=== PATIENT | male | born 1940 | race Caucasian/White ===

== ENCOUNTER 2019-03-12 10:42 | Emergency (ER) | payer MEDICARE ==
[~2019-03-12] VITALS: Ht 177.8 cm; Wt 99.8 kg
[~2019-03-12 10:42] MED LIST: ALBU2.5V8 IH; AMOX1TAB11 PO; ATOR20TA58 PO; BENZ-8 PO; CARV12.511 PO; IBUP-1060 PO; LOSA100T14 PO; PRIM50TA PO
[2019-03-12 11:20] VITALS: BP 172/91
[2019-03-12] MEDS ORDERED: CEPH-264 PO (11:41)
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
== END 2019-03-12 12:00 | disposition home or self-care (01) ==
LOC: ER 10:42
DX: M79.674 Pain in right toe(s) (principal); I48.91 Unspecified atrial fibrillation; J45.909 Unspecified asthma, uncomplicated; I11.0 Hypertensive heart disease with heart failure; I50.9 Heart failure, unspecified; J44.9 Chronic obstructive pulmonary disease, unspecified; E78.00 Pure hypercholesterolemia, unspecified
CPT/HCPCS: 99283

== ENCOUNTER 2020-05-23 16:22 | Observation (INO) | payer MEDICARE ==
[~2020-05-23] VITALS: Ht 177.8 cm; Wt 97.9 kg
[~2020-05-23 16:22] MED LIST changes: +ACET500T68 PO; +AMLO-186 PO; +ASPI-630 PO; +CEPH-264 PO; +GABA-585 PO; +HYDR-2761 PO; +IBUP-1027 PO
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
--- NOTE | 2020-05-23 17:42 | RAD ---
XR CHEST 1V History: Reason: SYNCOPE / Spl. Instructions: / History: Comparison: April 23, 2019 Findings: No consolidation or pleural effusion. Normal heart size. No pneumothorax. Impression: 1. No acute cardiopulmonary process. Electronically signed by: Gerry Roque DO (05/23/2020 5:40 PM) [facility]
--- NOTE | 2020-05-23 17:54 | RAD ---
EXAM: CT head and cervical spine without contrast INDICATION: Syncopal episode COMPARISON: CT head 04/21/2019 TECHNIQUE: Axial CT imaging through the head and cervical spine without intravenous contrast. Sagitta l and coronal reformats were obtained. One or more of the following individualized dose reduction techniques were utilized for this examinat ion: 1. Automated exposure control 2. Adjustment of the mA and/or kV according to patient size 3. Use of iterative reconstruction technique. FINDINGS: CT head: The ventricles and sulci are moderately enlarged, reflecting age-related volume loss. Moderate to sev ere confluent periventricular and deep white matter hypoattenuation is unchanged. Vo-white matter differentiation is maintained. There is no intracranial hemorrhage, acute infarct, or mass lesion. Ba yahir cisterns are clear. The calvarium is intact the visualized paranasal sinuses and mastoid air cell s are clear. Globes and orbits are intact. CT cervical spine: The bones are diffusely demineralized. There is no acute fracture. Alignment is normal. There is slig ht reversal of lordosis. Mild disc space narrowing is greatest at C5-C6 through C7-T1. There is sever e right facet arthrosis at C3-C4. Uncovertebral joint proliferation at multiple levels. There is cheryl re bilateral foraminal narrowing at C5-C6 and C6-C7, and severe right greater than left foraminal reji rowing at C3-C4. There is multilevel canal narrowing due to disc bulges. Prevertebral soft tissue is normal. There is a left common carotid artery stent. Mild paraseptal emph ysema in the lung apices. IMPRESSION: 1. No acute intracranial abnormality or acute osseous abnormality of the cervical spine. 2. Unchanged cerebral volume loss and white matter disease. 3. Degenerative disc disease. Electronically signed by: Josy Jeffrey MD (05/23/2020 5:51 PM) [id number]
[2020-05-23 18:07] LABS: BASO # 0.1 x10^3/uL (0.0-0.2); BASO % 1 % (0-3); EOS # 0.1 x10^3/uL (0.0-0.7); EOS % 1 % (0-3); HEMATOCRIT 41.9 % (39.0-53.0); HEMOGLOBIN 13.8 g/dL (13.0-17.5); LYMPH # 1.4 x10^3/uL (1.0-4.8); LYMPH % 19 % (24-48); MEAN CORPUSCULAR HEMOGLOBIN 30 pg (25-35); MEAN CORPUSCULAR HGB CONC 33 g/dL (31-37); MEAN CORPUSCULAR VOLUME 92 fL (79-100); MONO # 0.3 x10^3/uL (0.0-1.1); MONO % 4 % (0-9); NEUT # 5.5 x10^3/uL (1.8-7.7); NEUT % 75 % (31-73); PLATELET COUNT 155 x10^3/uL (140-400); RED BLOOD COUNT 4.55 x10^6/uL (4.30-5.70); RED CELL DISTRIBUTION WIDTH 14.1 % (11.5-14.5); WHITE BLOOD COUNT 7.3 x10^3/uL (4.0-11.0)
[2020-05-23 18:18] LABS: CALCIUM 8.9 mg/dL (8.5-10.1); CREATININE 2.1 mg/dL (0.7-1.3); GFR 30.5; POTASSIUM 4.2 mmol/L (3.5-5.1)
[2020-05-23 18:24] LABS: ALBUMIN 3.3 g/dL (3.4-5.0); ALBUMIN/GLOBULIN RATIO 0.9 (1.0-1.7); TOTAL BILIRUBIN 0.7 mg/dL (0.2-1.0); TOTAL PROTEIN 7.1 g/dL (6.4-8.2)
[2020-05-23 19:41] LABS: BASE EXCESS ABG -2 mmol/L (-3-3); HCO3 ABG 22 mmol/L (21-28); PCO2 ABG 37 mmHg (35-46); PO2 ABG 82 mmHg (65-108); SAT O2 ABG 96 % (92-99)
[2020-05-23 19:43] LABS: FIO2 ABG 21 (RA)
[2020-05-23 20:31] LABS: BILIRUBIN,URINE SMALL (NEG); CLARITY,URINE CLEAR; COLOR,URINE YELLOW; NITRITE,URINE NEGATIVE (NEG); PH,URINE 5.5 (<5.0-8.0); PROTEIN,URINE >=300 mg/dL (NEG-TRACE)
[2020-05-23] MEDS ORDERED: LOSA25TA54 PO (20:33)
[2020-05-23 20:36] LABS: BACTERIA,URINE 0 /HPF (0-FEW); RBC,URINE OCC /HPF (0-2); WBC,URINE OCC /HPF (0-4)
[2020-05-23] MEDS ORDERED: CALCIUM CARBONATE 500 MG TAB.CHEW PO PRN (22:00)
[2020-05-23] MEDS ORDERED: BISACODYL 10 MG SUPP.RECT. PR PRN (22:00)
[2020-05-23] MEDS ORDERED: ACETAMINOPHEN 325 MG TABLET. PO PRN (22:00)
[2020-05-23] MEDS ORDERED: MAGNESIUM HYDROXIDE 2,400 MG/30 ML ORAL.SUSP. PO PRN (22:00)
[2020-05-23] MEDS ORDERED: ONDANSETRON PF 4 MG/2 ML VIAL. IVP PRN (22:00)
[2020-05-23] MEDS ORDERED: MAG HYDROX/ALUMINUM HYD/SIMETH 30 ML ORAL.SUSP PO PRN (22:00)
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
[2020-05-23 22:28] VITALS: BP 131/53
[2020-05-23] MEDS: ASPIRIN CHEWABLE 81 MG TABLET. PO SCH (23:03)
[2020-05-23] MEDS: ATORVASTATIN CALCIUM 20 MG TABLET PO SCH (23:03)
[2020-05-23] MEDS: IV NORMAL SALINE 1000ML BAG 1,000 ML IV SCH (23:04)
[2020-05-24] VITALS (7 sets, daily range): BP systolic 132–171; BP diastolic 42–70
[2020-05-24] MEDS ORDERED: hydrALAZINE 20 MG/ML VIAL. IVP PRN (00:15)
[2020-05-24] MEDS ORDERED: traMADol 50 MG TABLET PO PRN (00:15)
[2020-05-24] MEDS ORDERED: hydrOXYzine 25 MG TABLET PO PRN (00:15)
[2020-05-24 02:53] LABS: CALCIUM 8.4 mg/dL (8.5-10.1); CREATININE 2.1 mg/dL (0.7-1.3); GFR 30.5; POTASSIUM 3.9 mmol/L (3.5-5.1)
--- NOTE | 2020-05-24 03:07 | EKG ---
[facility] [address] [place] [address] Test Date: 2020-05-23 Test Time: 17:46:51 Pat Name: ALLISON SINGER Department: Room: Gender: M Platform Supervisor: : [id number] Requested By: GRETCHEN BALLARD Order Number: [id number] Reading MD: Measurements Intervals [place] Rate: 69 P: 56 NH: 178 QRS: 49 QRSD: 72 T: 55 QT: 364 QTc: 391 Interpretive Statements SINUS RHYTHM ATRIAL PREMATURE COMPLEX(ES) QRS(T) CONTOUR ABNORMALITY CONSIDER ANTEROSEPTAL MYOCARDIAL DAMAGE POSSIBLY ABNORMAL ECG RI6.01 No previous ECG available for comparison
[2020-05-24] MEDS: IV NORMAL SALINE 1000ML BAG 1,000 ML IV SCH ×2 (08:38→20:40)
[2020-05-24] MEDS: LOSARTAN POTASSIUM 25 MG TABLET. PO SCH (08:39)
[2020-05-24] MEDS: HEPARIN for SUB-Q USE 5,000 UNIT/ML VIAL. SQ SCH ×2 (08:48→20:54)
[2020-05-24 09:06] LABS: CHOLESTEROL/HDL RATIO 2.4
[2020-05-24] MEDS ORDERED: PERFLUTREN PROTEIN-A MICROSPHR 0.22 MG/ML 3 ML VIAL. IV ONE ×2 (10:21→11:00)
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
[2020-05-24] MEDS ORDERED: GABA300C18 PO (11:33)
--- NOTE | 2020-05-24 13:38 | NUR ---
SS following for discharge planning. SS reviewed pt chart and discussed with pt RN. Pt is from [facility] and is currently on room air. PT/OT ordered. SS will continue to follow for discharge planning.
--- NOTE | 2020-05-24 17:46 | CARD ---
MR#: [id number] Date of Study: 05/24/2020 Ordering Physician: RAUHL SCHILLING, Referring Physician: RAHUL SCHILLING Tech: Arlen Rivera WAYNE APPROVED REPORT EXAM: Two-dimensional and M-mode echocardiogram with Doppler and color Doppler. Other Information Quality : AverageTechnically LimitedHR: 75bpm Rhythm : NSR INDICATION Chest Pain Echo Enhancing Agent Indication: Endocardial border delineation Agent/Amount Used: Optison 2mL RISK FACTORS Hypertension Hyperlipidemia Diabetes 2D DIMENSIONS Left Atrium(2D)3.9 (1.6-4.0cm)IVSd1.2 (0.7-1.1cm) Aortic Root(2D)2.9 (2.0-3.7cm)LVDd4.0 (3.9-5.9cm) LVOT Diameter2.0 (1.8-2.4cm)PWd1.2 (0.7-1.1cm) IVSs1.2 (0.8-1.2cm)LVDs3.5 (2.5-4.0cm) FS (%) 12.8 %PWs1.3 (0.8-1.2cm) SV19.6 ml Aortic Valve AoV Peak Rodrick.115.9cm/sAoV VTI26.6cm AO Peak GR.5.4mmHgLVOT Peak Rodrick.85.8cm/s LVOT VTI 22.16cmAO Mean GR.3mmHg ROSEANNE (VMAX)1.00ct8EQD (VTI)2.53cm2 Mitral Valve MV E Nznerioz73.4cm/sMV DECEL [id number] MV A Zpkdopdr39.3cm/sMV HFN52hz E/A Ratio1.0MVA (PHT)2.84cm2 TDI E/Lateral E'6.6E/Medial E'9.1 Pulmonary Valve PV Peak Plqaeink99.9cm/sPV Peak Grad.3mmHg Tricuspid Valve TR P. Ezdfnpsk945uk/sTR Peak Gr.12mmHg Pulmonary Vein S1 Ainkfawh31.0cm/sD2 Fqfgfids30.6cm/s PVa [id number] LEFT VENTRICLE The left ventricle is normal size. There is mild concentric left ventricular hypertrophy. The left ve ntricular systolic function is normal and the ejection fraction is within normal range. Estimated eje ction fraction 55-60%. There is normal LV segmental wall motion. Transmitral Doppler flow pattern is Grade I-abnormal relaxation pattern. RIGHT VENTRICLE The right ventricle is normal size. There is normal right ventricular wall thickness. The right ventr icular systolic function is normal. ATRIA The left atrium size is normal. The right atrium size is normal. The interatrial septum is intact wit h no evidence for an atrial septal defect or patent foramen ovale as noted on 2-D or Doppler imaging. AORTIC VALVE The aortic valve is normal in structure and function. Doppler and Color Flow revealed no significant aortic regurgitation. There is no significant aortic valvular stenosis. MITRAL VALVE The mitral valve is calcified but opens well. There is no evidence of mitral valve prolapse. There is no mitral valve stenosis. Doppler and Color-flow revealed trace to mild mitral regurgitation. TRICUSPID VALVE The tricuspid valve is normal in structure and function. Doppler and Color Flow revealed trace tricus pid regurgitation. Estimated PAP 30 mmHg. There is no tricuspid valve stenosis. PULMONIC VALVE The pulmonary valve is normal in structure and function. Doppler and Color Flow revealed no pulmonic valvular regurgitation. GREAT VESSELS The aortic root is normal in size. The ascending aorta is normal in size. The IVC is normal in size a nd collapses >50% with inspiration. PERICARDIAL EFFUSION There is no evidence of significant pericardial effusion. Critical Notification Critical Value: No <Conclusion> The left ventricle is normal size. The left ventricular systolic function is normal and the ejection fraction is within normal range. Estimated ejection fraction 55-60%. There is mild concentric left ventricular hypertrophy. Doppler and Color Flow revealed no significant aortic regurgitation. There is no significant aortic valvular stenosis. Doppler and Color-flow revealed trace to mild mitral regurgitation. Doppler and Color Flow revealed trace tricuspid regurgitation. Estimated PAP 30 mmHg. Signed by : Bonifacio Jensen MD Electronically Approved : 05/24/2020 17:45:40
[2020-05-24] MEDS: ATORVASTATIN CALCIUM 20 MG TABLET PO SCH (20:41)
[2020-05-24] MEDS: ASPIRIN CHEWABLE 81 MG TABLET. PO SCH (20:41)
[2020-05-25 02:47] VITALS: BP 132/61
[2020-05-25] MEDS: IV NORMAL SALINE 1000ML BAG 1,000 ML IV SCH ×2 (05:59→14:00)
[2020-05-25 07:00] VITALS: BP 172/61
[2020-05-25 08:21] LABS: CALCIUM 7.9 mg/dL (8.5-10.1); CREATININE 1.8 mg/dL (0.7-1.3); GFR 36.5; POTASSIUM 3.9 mmol/L (3.5-5.1)
[2020-05-25] MEDS: LOSARTAN POTASSIUM 25 MG TABLET. PO SCH (08:35)
[2020-05-25] MEDS: HEPARIN for SUB-Q USE 5,000 UNIT/ML VIAL. SQ SCH (08:44)
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
[2020-05-25 11:00] VITALS: BP 137/68
--- NOTE | 2020-05-25 11:05 | SNU/HH DC ---
DISCHARGE WITH HOME HEALTH DISCHARGE INFORMATION: Discharge Date: May 25, 2020 Final Diagnosis: Problems Medical Problems: (1) Acute kidney injury Status: Acute (2) Elevated troponin I level Status: Acute (3) Syncope Status: Acute Condition on Discharge: Stable CODE STATUS: Code Status: Full HOME HEALTH: Face to Face: I certify this patient is under my care and that I, or a nurse practitioner or physician's planning assistant working with me, had a face to face encounter that meets the physician face to face encounter requirements with this patient on 05/25/2020. RN For Eval/Treatment: Yes Physical Therapy For: Evalulation/Treatment Occupational Therapy For: Evaluation/Treatment Pt Meets Homebound Status: Poor coordination w/ amb., Unsteady balance w/ amb,, Frequent falls w/ injury, Poor cognition POST DISCHARGE ORDERS: Activity Instructions for Disc: Activity as tolerated Weight Bearing Status after Di: Full weight bearing, As tolerated DIET AFTER DISCHARGE: ADA CHECKS AFTER DISCHARGE: Checks after discharge: Check blood press - daily, Check blood sugar, ac/hs TREATMENT/EQUIPMENT ORDERS: Adaptive Equipment Issued: None CERTIFICATION STATEMENT: Certification Statement: Certification Statement: Based on the above finding, I certify that this patient is confined to the home and needs intermittent senior care care, physical therapy and/or speech therapy, or continues to need occupational therapy.~ This patient is under my care, and I have initiated the establishment of the plan of care.~ This patient will be followed by myself or a community physician who will periodically review the plan of care. Home Meds Reported Medications Gabapentin (GABAPENTIN ) 300 Mg Capsule, 300 MG PO TID for NEUROGENIC PAIN, CAP 05/24/20 Losartan Potassium (LOSARTAN POTASSIUM ) 25 Mg Tablet, 25 MG PO DAILY for HYPERTENSION, TAB 05/23/20 Aspirin (ASPIRIN) 81 Mg Tab.chew, 81 MG PO HS for other, TAB.CHEW 04/21/19 Atorvastatin Calcium (ATORVASTATIN CALCIUM) 20 Mg Tablet, 1 TAB PO QHS for CHOLESTEROL, #30 TAB 5 Refills 07/09/15 SUNDEEP JULIEN MD May 25, 2020 11:05
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
--- NOTE | 2020-05-25 12:36 | NUR ---
SS following up with discharge planning. SS reviewed pt chart and discussed with pt RN. Pt is currently on room air. PT recommended home independent. Discharge orders for home healthcare received. SS met with pt and discussed discharge planning and home healthcare. Pt agreeable to home healthcare with no preference of company. SS phoned and faxed discharge orders and referral to [facility], ; fax [phone]. Pt's friend Marialuisa, , to meet pt at his apartment with his keys. Pt needing transport to home. [facility] transport has no availabilities. Pt will discharge to home via [employer] transportation, . Pt's RN notified.
--- NOTE | 2020-05-25 12:49 | PDOC ---
RAHUL SCHILLING [employer] 05/25/20 1249: CARDIO Progress Notes Date and Time Date of Service 05/25/2020 Time of Evaluation 1220 Vitals Vitals Vital Signs Date Time Temp Pulse Resp B/P (MAP) Pulse Ox O2 Delivery O2 Flow Rate FiO2 05/25/20 11:00 97.9 79 19 137/68 (91) 98 Room Air 97.9 Weight Weight [ ] Input and Output Intake and Output Intake and Output 05/25/20 07:00 Intake Total 1840 ml Output Total 400 ml Balance 1440 ml Intake Oral 890 ml IV Total 950 ml Output Urine Total 400 ml # Voids 2 # Bowel Movements 1 Laboratory Labs Laboratory Tests Test 05/25/20 07:10 Sodium Level 145 mmol/L (136-145) Potassium Level 3.9 mmol/L (3.5-5.1) Chloride Level 112 mmol/L (98-107) Carbon Dioxide Level 24 mmol/L (21-32) Anion Gap 9 (6-14) Blood Urea Nitrogen 36 mg/dL (8-26) Creatinine 1.8 mg/dL (0.7-1.3) Estimated GFR (Cockcroft-Gault) 36.5 Glucose Level 97 mg/dL (70-99) Calcium Level 7.9 mg/dL (8.5-10.1) Assessment Assessment 1. Syncope with nontraumatic fall: possibly vasovagal, could not rule out arrhythmia. Negative for orthostasis. EF and WM nml.per TTE 2. Tremors/Dementia with likely parkinsonism 3. Carotid artery disease: seen by vascular 04/11/2019 Known chronic occlusion to RCIA and patent stent to left carotid, recent US per vascular 4. HTN: controlled 5. HLP 6. 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 Hx of CAD; 2004 stent, clinically stable 9. Hx of cardiomyopathy; prior EF and WM nml 10. PAFIB with hx of asymptomatic SB: No AFIB so far 11. Mild troponin elevation: No CP, no acute EKG changes. Suspect demand mediated 12. PSVT: x1 briefly Recommendations 1. CrCl 38. Continue home losartan. No BB 2. ASA and statin 3. Poor candidate for antiocoagulation with high risk for falls and injury. ASA for stroke prevention. 4. Will consider for outpt stress test. MARTINA Claims he sees [facility] cardiology but I reviewed his records and RN notified PCP and verified that it was vascular surgery he was seeing and not cardiology. He is quite irritated and does not want his family to known that he is in the hospital. I discussed with him about cardiology appointment and wearing a heart monitor for 2 weeks and he said that he will comply. Will arrange for [facility] prior to DC 5. He will also need outpt opthalmology check Justicifation of Admission Dx: Justifications for Admission: Justification of Admission Dx: Yes TROY DIEGO MD 05/25/20 1916: RAHUL SCHILLING APRN May 25, 2020 12:49 TROY DIEGO MD May 25, 2020 19:16
--- NOTE | 2020-05-25 13:30 | NUR ---
Discharge Note: ALLISON SINGER Discharge instructions and discharge home medications reviewed with Patient and a copy given. All questions have been answered and understanding verbalized. The following instructions and handouts were given: orthostatic hypotension, syncope Patient discharged to home with home health via wheelchair.
== END 2020-05-25 13:30 | disposition home health service (06) ==
LOC: ER 16:22 → 2 NORTH 18:50 → INTOOBSV 18:50
PROVIDERS: ADMIT Family Medicine; ATTEND Family Medicine
DX: N17.9 Acute kidney failure, unspecified (principal); R55 Syncope and collapse; R77.8 Other specified abnormalities of plasma proteins; E46 Unspecified protein-calorie malnutrition; N17.0 Acute kidney failure with tubular necrosis; I13.0 Hypertensive heart and chronic kidney disease with heart failure and stage 1 through stage 4 chronic kidney disease, or unspecified chronic kidney disease; I50.9 Heart failure, unspecified; N18.4 Chronic kidney disease, stage 4 (severe); I25.10 Atherosclerotic heart disease of native coronary artery without angina pectoris; I42.9 Cardiomyopathy, unspecified; I48.0 Paroxysmal atrial fibrillation; J44.9 Chronic obstructive pulmonary disease, unspecified; I65.21 Occlusion and stenosis of right carotid artery; E78.5 Hyperlipidemia, unspecified; G20 Parkinson's disease; E78.00 Pure hypercholesterolemia, unspecified; E11.22 Type 2 diabetes mellitus with diabetic chronic kidney disease; I25.2 Old myocardial infarction; M19.90 Unspecified osteoarthritis, unspecified site; F03.90 Unspecified dementia, unspecified severity, without behavioral disturbance, psychotic disturbance, mood disturbance, and anxiety; F02.80 Dementia in other diseases classified elsewhere, unspecified severity, without behavioral disturbance, psychotic disturbance, mood disturbance, and anxiety; Z68.31 Body mass index [BMI] 31.0-31.9, adult; Z79.82 Long term (current) use of aspirin; Z86.73 Personal history of transient ischemic attack (TIA), and cerebral infarction without residual deficits; Z87.891 Personal history of nicotine dependence; Z98.49 Cataract extraction status, unspecified eye; Z90.49 Acquired absence of other specified parts of digestive tract
CPT/HCPCS: 36415; 36600; 70450; 71045; 72125; 80048; 80053; 80061; 81001; 82550; 82805; 83735; 84443; 84484; 85025; 93005; 96360; 96361; 96372; 97161; 97166; 97530; 97535; 99285; C8929; G0378; J1644; J7030; Q9956; G0379

== ENCOUNTER 2020-06-10 13:55 | Emergency (ER) | payer MEDICARE ==
[~2020-06-10] VITALS: Ht 170.2 cm; Wt 86.0 kg
[~2020-06-10 13:55] MED LIST changes: +GABA300C18 PO; +LOSA25TA54 PO
--- NOTE | 2020-06-10 14:40 | PHYS DOC ---
Past Medical History Past Medical History: A-Fib, Asthma, CHF, COPD, Diabetes-Type II, High Ch olesterol, Hypertension, [place], Stroke, Other Additional Past Medical Histor: Parkinsons,TREMORS Past Surgical History: Tonsillectomy Additional Past Surgical Histo: stents Smoking Status: Former Smoker Alcohol Use: Rarely Drug Use: None General Adult EDM: Chief Complaint: ANXIETY/PANIC ATTACK HPI: HPI: Patient is a 80 year old male who was brought here by EMS from home due to an anxiety attack. Patient is scheduled for his first Covid vaccine tomorrow. Patient has been thinking about it, he is afraid of the needle. Patient said he is so scared of the needle that he becomes very anxious for the vaccination tomorrow. He did not know what to do so he called EMS to take him here for evaluation. Patient denies any chest pain, no headache, no abdominal pain, no trouble breathing. Patient denies any suicidal ideation, denies homicidal ideation. Patient denies any nausea vomiting, no abdominal pain. Patient was evaluated recently due to syncope. Patient has a Holter monitor that he is wearing on his chest right now. Review of Systems: Review of Systems: Constitutional: Denies fever or chills. [] Eyes: Denies change in visual acuity. [] HENT: Denies nasal congestion or sore throat. [] Respiratory: Denies cough or shortness of breath. [] Cardiovascular: Denies chest pain or edema. [] GI: Denies abdominal pain, nausea, vomiting, bloody stools or diarrhea. [] : Denies dysuria. [] Musculoskeletal: Denies back pain or joint pain. [] Integument: Denies rash. [] Neurologic: Denies headache, focal weakness or sensory changes. [] Endocrine: Denies polyuria or polydipsia. [] Lymphatic: Denies swollen glands. [] Psychiatric: Patient is very anxious. Denies homicidal ideation, denies suicidal ideation. Heart Score: C/O Chest Pain: N/A Risk Factors: Risk Factors: DM, Current or recent (<one month) smoker, HTN, HLP, family history of CAD, obesity. Risk Scores: Score 0 - 3: 2.5% MACE over next 6 weeks - Discharge Home Score 4 - 6: 20.3% MACE over next 6 weeks - Admit for Clinical Observation Score 7 - 10: 72.7% MACE over next 6 weeks - Early Invasive Strategies Allergies: Allergies: Allergies Coded Allergies Type Severity Reaction Last Updated Verified No Known Drug Allergies 07/09/15 No Physical Exam: PE: Constitutional: Well developed, well nourished, no acute distress, non-toxic appearance. [] HENT: Normocephalic, atraumatic, bilateral external ears normal, oropharynx moist, no oral exudates, nose normal. [] Eyes: PERRLA, EOMI, conjunctiva normal, no discharge. [] Neck: Normal range of motion, no tenderness, supple, no stridor. [] Cardiovascular:Heart rate regular rhythm, no murmur [] Lungs & Thorax: Bilateral breath sounds clear to auscultation [] Abdomen: Bowel sounds normal, soft, no tenderness, no masses, no pulsatile masses. [] Skin: Warm, dry, no erythema, no rash. [] Back: No tenderness, no CVA tenderness. [] Extremities: No tenderness, no cyanosis, no clubbing, ROM intact, no edema. [] Neurologic: Alert and oriented X 3, normal motor function, normal sensory function, no focal deficits noted. [] Psychologic: Affect normal, appears anxious Current Patient Data: Vital Signs: Vital Signs Date Time Temp Pulse Resp B/P (MAP) Pulse Ox O2 Delivery O2 Flow Rate FiO2 06/10/20 14:00 98.6 73 18 181/76 (111) 97 Room Air 98.6 EKG: EKG: [] Radiology/Procedures: Radiology/Procedures: [] Course & Med Decision Making: Course & Med Decision Making Pertinent Labs and Imaging studies reviewed. (See chart for details) Patient is an 80-year-old male who is having anxiety from having Covid infection tomorrow because he is afraid of the needle. This physician and RN discussed with the patient about the benefits of having the vaccine, and this caused to him that needle was small and is not very painful. Patient felt okay now to go home and continue with the scheduled vaccination tomorrow Tariqon Disclaimer: Smith Disclaimer: This electronic medical record was generated, in whole or in part, using a voice recognition dictation system. Departure Departure Impression: Primary Impression: Anxiety about health Disposition: 01 DC HOME SELF CARE/HOMELESS Condition: STABLE Referrals: ZARA BURNETT MD (PCP) Patient Instructions: Anxiety and Panic Attacks Additional Instructions: Thank you for visiting our Emergency Department. We appreciate you trusting us with your care. If any additional problems come up don't hesitate to return to visit us. Please follow up with your primary care provider so they can plan additional care if needed and know about the problem that you had. If symptoms worsen come back to the Emergency Department. Any concerning symptoms that start such as chest pain, shortness of air, weakness or numbness on one side of the body, running high fevers or any other concerning symptoms return to the ER. NAIMA STRATTON DO Jun 10, 2020 14:40
[2020-06-10 15:50] VITALS: BP 170/78
== END 2020-06-10 15:50 | disposition home or self-care (01) ==
LOC: ER 13:55
DX: F41.8 Other specified anxiety disorders (principal); I48.20 Chronic atrial fibrillation, unspecified; I11.0 Hypertensive heart disease with heart failure; I50.9 Heart failure, unspecified; J44.9 Chronic obstructive pulmonary disease, unspecified; E78.00 Pure hypercholesterolemia, unspecified; E11.9 Type 2 diabetes mellitus without complications; I25.2 Old myocardial infarction; Z87.891 Personal history of nicotine dependence; Z90.89 Acquired absence of other organs; Z98.890 Other specified postprocedural states
CPT/HCPCS: 99283

== ENCOUNTER 2021-03-04 10:33 | Observation (INO) | payer MEDICARE ==
[~2021-03-04] VITALS: Ht 177.8 cm; Wt 69.1 kg
[~2021-03-04 10:33] MED LIST changes: +QUET25TA3 PO
[2021-03-04 12:38] LABS: BASO # 0.1 x10^3/uL (0.0-0.2); BASO % 1 % (0-3); EOS # 0.7 x10^3/uL (0.0-0.7); EOS % 13 % (0-3); HEMATOCRIT 36.3 % (39.0-53.0); HEMOGLOBIN 11.7 g/dL (13.0-17.5); LYMPH # 1.2 x10^3/uL (1.0-4.8); LYMPH % 20 % (24-48); MEAN CORPUSCULAR HEMOGLOBIN 30 pg (25-35); MEAN CORPUSCULAR HGB CONC 32 g/dL (31-37); MEAN CORPUSCULAR VOLUME 93 fL (79-100); MONO # 0.3 x10^3/uL (0.0-1.1); MONO % 5 % (0-9); NEUT # 3.7 x10^3/uL (1.8-7.7); NEUT % 62 % (31-73); PLATELET COUNT 168 x10^3/uL (140-400); RED BLOOD COUNT 3.91 x10^6/uL (4.30-5.70); RED CELL DISTRIBUTION WIDTH 14.5 % (11.5-14.5); WHITE BLOOD COUNT 5.9 x10^3/uL (4.0-11.0)
[2021-03-04 13:03] LABS: CALCIUM 8.7 mg/dL (8.5-10.1); CREATININE 1.8 mg/dL (0.7-1.3); GFR 36.4; POTASSIUM 4.6 mmol/L (3.5-5.1)
--- NOTE | 2021-03-04 13:05 | RAD ---
CT HEAD/BRAIN WO History: New seizure Comparison: 06/13/2020 Technique: Noncontrast CT imaging was performed of the head. Findings: No intracranial hemorrhage. No mass effect. No hydrocephalus. No evidence of acute territorial infar ction. Stable prominence of the lateral ventricles and hypodensity the periventricular and deep white matter consistent with chronic microvascular ischemic changes. Postsurgical changes of the lenses. Orbits are otherwise unremarkable. Imaged paranasal sinuses and m astoid air cells are clear. The scalp and calvarium are unremarkable. Impression: 1. No acute intracranial abnormality. ----- Exposure: One or more of the following individualized dose reduction techniques were utilized for thi s examination: 1. Automated exposure control 2. Adjustment of the mA and/or kV according to patient size 3. Use of iterative reconstruction technique. Electronically signed by: Chidi Copeland MD (03/04/2021 1:03 PM) [facility]
[2021-03-04 13:09] LABS: ALBUMIN 3.5 g/dL (3.4-5.0); TOTAL BILIRUBIN 0.4 mg/dL (0.2-1.0); TOTAL PROTEIN 7.1 g/dL (6.4-8.2)
--- NOTE | 2021-03-04 14:01 | PHYS DOC ---
Past Medical History Past Medical History: A-Fib, Asthma, CHF, COPD, Diabetes-Type II, High Cholesterol, Hypertension, [place], Stroke, Other Additional Past Medical Histor: TREMORS, OCCLUSION AND STENOSIS OF R CAROTID ARTERY, NEUROPATHY, Past Surgical History: Tonsillectomy Additional Past Surgical Histo: stents Smoking Status: Unknown if ever smoked Alcohol Use: Rarely Drug Use: None General Adult EDM: Chief Complaint: SYNCOPE HPI: HPI: Patient is a 80 year old male with history of tremors, dementia, paranoid delusions, behavioral issues requiring antipsychotics who presents with an episode of unresponsiveness earlier today. Was at his snf became unresponsive. They describe some shaking, but were unable to further describe the episode. Patient is amnestic to this event. He is convinced that all of his providers are "tapped by the ELZA." These delusions have been ongoing for some time, and are not new according to his caregiver. He denies any pain. No witnessed trauma. Denies history of previous seizure episodes. Review of Systems: Review of Systems: Unable to obtain reliable ROS secondary to dementia Heart Score: C/O Chest Pain: No Allergies: Allergies: Allergies Coded Allergies Type Severity Reaction Last Updated Verified No Known Drug Allergies 03/04/21 No Physical Exam: PE: Constitutional: Chronically ill-appearing, multiple excoriations and pockmarks on face and extremities. HENT: Normocephalic, atraumatic Eyes:conjunctiva normal, no discharge. [] Neck: Normal range of motion, no tenderness, supple, no stridor. [] Cardiovascular:Heart rate regular rhythm, no murmur [] Lungs & Thorax: Bilateral breath sounds clear to auscultation [] Abdomen: Mildly tender diffusely, no rigidity or rebound Skin: Warm, dry, no erythema, no rash. [] Back: No tenderness, no CVA tenderness. [] Extremities: No tenderness, no cyanosis, no clubbing, ROM intact, no edema. [] Neurologic: Alert, normal motor function, normal sensory function, no focal deficits noted. Persistent delusions. 5/5 strength in bilateral upper and lower extremities Resting tremor No rigidity [] Psychologic: Affect normal, judgement normal, mood normal. [] Current Patient Data: Labs: Laboratory Tests Test 03/04/21 11:05 03/04/21 12:25 Glucose (Fingerstick) 91 mg/dL (70-99) White Blood Count 5.9 x10^3/uL (4.0-11.0) Red Blood Count 3.91 x10^6/uL (4.30-5.70) L Hemoglobin 11.7 g/dL (13.0-17.5) L Hematocrit 36.3 % (39.0-53.0) L Mean Corpuscular Volume 93 fL (79-100) Mean Corpuscular Hemoglobin 30 pg (25-35) Mean Corpuscular Hemoglobin Concent 32 g/dL (31-37) Red Cell Distribution Width 14.5 % (11.5-14.5) Platelet Count 168 x10^3/uL (140-400) Neutrophils (%) (Auto) 62 % (31-73) Lymphocytes (%) (Auto) 20 % (24-48) L Monocytes (%) (Auto) 5 % (0-9) Eosinophils (%) (Auto) 13 % (0-3) H Basophils (%) (Auto) 1 % (0-3) Neutrophils # (Auto) 3.7 x10^3/uL (1.8-7.7) Lymphocytes # (Auto) 1.2 x10^3/uL (1.0-4.8) Monocytes # (Auto) 0.3 x10^3/uL (0.0-1.1) Eosinophils # (Auto) 0.7 x10^3/uL (0.0-0.7) Basophils # (Auto) 0.1 x10^3/uL (0.0-0.2) Sodium Level 145 mmol/L (136-145) Potassium Level 4.6 mmol/L (3.5-5.1) Chloride Level 108 mmol/L (98-107) H Carbon Dioxide Level 28 mmol/L (21-32) Anion Gap 9 (6-14) Blood Urea Nitrogen 46 mg/dL (8-26) H Creatinine 1.8 mg/dL (0.7-1.3) H Estimated GFR (Cockcroft-Gault) 36.4 BUN/Creatinine Ratio 26 (6-20) H Glucose Level 95 mg/dL (70-99) Calcium Level 8.7 mg/dL (8.5-10.1) Total Bilirubin 0.4 mg/dL (0.2-1.0) Aspartate Amino Transferase (AST) 20 U/L (15-37) Alanine Aminotransferase (ALT) 29 U/L (16-63) Alkaline Phosphatase 136 U/L (46-116) H Troponin I High Sensitivity 19 ng/L (4-75) Total Protein 7.1 g/dL (6.4-8.2) Albumin 3.5 g/dL (3.4-5.0) Albumin/Globulin Ratio 1.0 (1.0-1.7) Laboratory Tests 03/04/21 12:25 Laboratory Tests 03/04/21 12:25 Vital Signs: Vital Signs Date Time Temp Pulse Resp B/P (MAP) Pulse Ox O2 Delivery O2 Flow Rate FiO2 03/04/21 11:17 75 14 204/88 (126) 100 Room Air 03/04/21 10:33 97.1 97.1 EKG: EKG: Sinus rhythm. Rate 80. Normal axis. Normal intervals. No acute ischemic changes.[] Radiology/Procedures: Radiology/Procedures: [] Impression: [facility] [address] [place] [address] IMAGING REPORT Signed PATIENT: ALLISON SINGER ACCOUNT: [id number] : 1940 LOCATION: ER AGE: 80 SEX: M EXAM STATUS: REG ER ORD. PHYSICIAN: ANI POLK MD REASON: ? NEW SEIZURE PROCEDURE: CT HEAD WO CONTRAST CT HEAD/BRAIN WO History: New seizure Comparison: 06/13/2020 Technique: Noncontrast CT imaging was performed of the head. Findings: No intracranial hemorrhage. No mass effect. No hydrocephalus. No evidence of acute territorial infarction. Stable prominence of the lateral ventricles and hypodensity the periventricular and deep white matter consistent with chronic microvascular ischemic changes. Postsurgical changes of the lenses. Orbits are otherwise unremarkable. Imaged paranasal sinuses and mastoid air cells are clear. The scalp and calvarium are unremarkable. Impression: 1. No acute intracranial abnormality. ----- Exposure: One or more of the following individualized dose reduction techniques were utilized for this examination: 1. Automated exposure control 2. Adjustment of the mA and/or kV according to patient size 3. Use of iterative reconstruction technique. Electronically signed by: Chidi Montelongo MD (03/04/2021 1:03 PM) [facility] DICTATED and SIGNED BY: CHIDI MONTELONGO MD DATE: 03/04/21 [id number] 0 Course & Med Decision Making: Course & Med Decision Making Pertinent Labs and Imaging studies reviewed. (See chart for details) Patient 80-year-old male with history of tremor, dementia, behavioral issues requiring antipsychotics who presented with an unresponsive episode earlier today. Unclear whether this represents syncope versus seizure at this time. CT head was unremarkable. Labs including CBC, CMP, UA show baseline CKD and some proteinuria. No other acute changes noted. Patient is persistently paranoid on examination, but this is reportedly not new. Discussed his case with Dr. Méndez, the patient's PCP, and we have jointly decided to admit him to telemetry for further monitoring. 1605 Tariqon Disclaimer: Smith Disclaimer: This electronic medical record was generated, in whole or in part, using a voice recognition dictation system. Departure Departure Impression: Primary Impression: Unresponsive episode Disposition: ADMITTED INPATIENT Admitting Physician: Madi. Ordaz Condition: STABLE Referrals: PARISH MÉNDEZ MD (PCP) ANI POLK MD Mar 04, 2021 14:01
[2021-03-04 14:15] LABS: BILIRUBIN,URINE NEGATIVE (NEG); CLARITY,URINE CLEAR; COLOR,URINE YELLOW; NITRITE,URINE NEGATIVE (NEG); PH,URINE 6.5 (<5.0-8.0); PROTEIN,URINE 100 mg/dL (NEG-TRACE); UROBILINOGEN,URINE 0.2 mg/dL (0.2 mg/dL)
[2021-03-04 14:35] LABS: BACTERIA,URINE 0 /HPF (0-FEW); RBC,URINE OCC /HPF (0-2); WBC,URINE 0 /HPF (0-4)
[2021-03-04] MEDS ORDERED: LOSARTAN POTASSIUM 50 MG TABLET. PO STA (17:05)
[2021-03-04] MEDS ORDERED: HALOPERIDOL LACTATE 5 MG/ML VIAL. IM ONE (17:15)
[2021-03-04] MEDS ORDERED: OLAN5TAB3 PO (18:39)
[2021-03-04] MEDS ORDERED: HALO5SYR3 IM (18:39)
[2021-03-04] MEDS ORDERED: OLAN2.5T3 PO (18:39)
[2021-03-04] MEDS ORDERED: LOSA100T14 PO (18:39)
[2021-03-04 19:00] VITALS: BP 186/69
[2021-03-04] MEDS ORDERED: OLANZapine IM 10 MG VIAL. IM SCH ×2 (19:00)
[2021-03-04] MEDS ORDERED: HALOPERIDOL LACTATE 5 MG/ML VIAL. IM PRN (19:00)
[2021-03-04] MEDS ORDERED: OLANZapine 2.5 MG TABLET PO PRN (19:00)
--- NOTE | 2021-03-04 19:07 | NUR ---
per documentation, patient not answering question Addendum: 03/04/21 at 1913 by KYLAH CANALES RN RN Amended: Links added.
--- NOTE | 2021-03-04 19:12 | NUR ---
unable to complete, refusing Addendum: 03/04/21 at 1913 by KYLAH CANALES RN RN Amended: Links added.
--- NOTE | 2021-03-04 19:14 | NUR ---
minimal admission, patient refusing.
[2021-03-04] MEDS: IV DEXTROSE 5% 1,000 ML IV SCH (22:10)
[2021-03-04] MEDS: ATORVASTATIN CALCIUM 20 MG TABLET PO SCH (22:10)
[2021-03-04] MEDS: OLANZapine 5 MG TABLET PO SCH (22:10)
[2021-03-04] MEDS: GABAPENTIN 100 MG CAPSULE. PO SCH (22:10)
[2021-03-04] MEDS: ASPIRIN CHEWABLE 81 MG TABLET. PO SCH (22:11)
[2021-03-04] MEDS: QUEtiapine 25 MG TABLET. PO SCH (22:11)
[2021-03-04 22:52] VITALS: BP 145/61
[2021-03-05 03:00] VITALS: BP 135/72
[2021-03-05 06:20] LABS: BASO # 0.1 x10^3/uL (0.0-0.2); BASO % 1 % (0-3); EOS # 0.7 x10^3/uL (0.0-0.7); EOS % 13 % (0-3); HEMATOCRIT 32.3 % (39.0-53.0); HEMOGLOBIN 10.3 g/dL (13.0-17.5); LYMPH # 1.3 x10^3/uL (1.0-4.8); LYMPH % 25 % (24-48); MEAN CORPUSCULAR HEMOGLOBIN 30 pg (25-35); MEAN CORPUSCULAR HGB CONC 32 g/dL (31-37); MEAN CORPUSCULAR VOLUME 93 fL (79-100); MONO # 0.3 x10^3/uL (0.0-1.1); MONO % 5 % (0-9); NEUT # 2.9 x10^3/uL (1.8-7.7); NEUT % 56 % (31-73); PLATELET COUNT 138 x10^3/uL (140-400); RED BLOOD COUNT 3.47 x10^6/uL (4.30-5.70); RED CELL DISTRIBUTION WIDTH 14.4 % (11.5-14.5); WHITE BLOOD COUNT 5.2 x10^3/uL (4.0-11.0)
[2021-03-05 06:55] LABS: ALBUMIN 2.7 g/dL (3.4-5.0); ALBUMIN/GLOBULIN RATIO 0.8 (1.0-1.7); CALCIUM 8.2 mg/dL (8.5-10.1); CREATININE 1.5 mg/dL (0.7-1.3); GFR 44.9; POTASSIUM 3.8 mmol/L (3.5-5.1); TOTAL BILIRUBIN 0.4 mg/dL (0.2-1.0); TOTAL PROTEIN 5.9 g/dL (6.4-8.2)
[2021-03-05 07:00] VITALS: BP 140/65
[2021-03-05] MEDS ORDERED: LOSARTAN POTASSIUM 25 MG TABLET. PO SCH (09:00)
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
[2021-03-05] MEDS: LOSARTAN POTASSIUM 50 MG TABLET. PO SCH (09:05)
[2021-03-05] MEDS: GABAPENTIN 100 MG CAPSULE. PO SCH ×3 (09:06→22:49)
[2021-03-05] MEDS: QUEtiapine 25 MG TABLET. PO SCH ×3 (09:06→22:50)
[2021-03-05] MEDS: ASPIRIN CHEWABLE 81 MG TABLET. PO SCH (09:07)
[2021-03-05] MEDS ORDERED: OLANZapine IM 10 MG VIAL. IM PRN ×2 (09:45)
[2021-03-05] MEDS: IV DEXTROSE 5% 1,000 ML IV SCH ×2 (09:45→20:42)
[2021-03-05 11:00] VITALS: BP 148/46
--- NOTE | 2021-03-05 11:22 | PDOC2 ---
RAHUL SCHILLING TREASURY MANAGER 03/05/21 1122: CARDIAC CONSULT DATE OF CONSULT Date of Consult DATE: 03/05/21 TIME: 11:02 REASON FOR CONSULT Reason for Consult: Syncope REFERRING PHYSICIAN Referring Physician: Dev SOURCE Source: Chart review, Patient HISTORY OF PRESENT ILLNESS HISTORY OF PRESENT ILLNESS This is an 80 yo male admitted for complains of possibly passing out. Reporrted "blacking out". No complains of chest pain or SOA or palpitations. No signs of injury. He was dehydrated upon admission. He is a poor historian marked with intermittent paranoia. PAST MEDICAL HISTORY Past Medical History Cardiovascular: AFIB, CAD, CHF, HTN, HI, Hyperlipidemia, Other (carotid artery disease, ), chronically occluded RCIA, vasovagal syncope CENTRAL NERVOUS SYSTEM: Dementia, Other (Parkinsons) Hepatobiliary: No pertinent hx Musculoskeletal: Osteoarthritis Rheumatologic: No pertinent hx Infectious disease: No pertinent hx ENT: Other (cataract) Renal/: CKD3 baseline Cr is at 1.8 Endocrine: Diabetes (2) Dermatology: No pertinent hx PAST SURGICAL HISTORY Past Surgical History Cataract Removal, Other (left carotid stent placement; PCI/stent in 2003) FAMILY HISTORY Family History: Family History Unknown SOCIAL HISTORY Smoke: Quit ALCOHOL: none Drugs: None Lives: [facility] CURRENT MEDICATIONS CURRENT MEDICATIONS Current Medications Medications (Trade) Dose Ordered Sig/Ofelia Route PRN Reason Start Time Stop Time Status Last Admin Dose Admin Haloperidol Lactate (Haldol Inj) 5 mg 1X ONCE IM 03/04/21 17:15 03/04/21 17:16 DC 03/04/21 17:24 Losartan Potassium (Cozaar) 100 mg 1X STAT PO 03/04/21 17:05 03/04/21 17:10 DC 03/04/21 17:23 Aspirin (Aspirin Chewable) 81 mg HS PO 03/04/21 21:00 03/05/21 09:07 Atorvastatin Calcium (Lipitor) 20 mg QHS PO 03/04/21 21:00 03/04/21 22:10 Gabapentin (Neurontin) 100 mg TID PO 03/04/21 21:00 03/05/21 09:06 Olanzapine (ZyPREXA) 5 mg QHS PO 03/04/21 21:00 03/04/21 22:10 Losartan Potassium (Cozaar) 100 mg DAILY PO 03/05/21 09:00 03/05/21 09:05 Quetiapine Fumarate (SEROquel) 50 mg TID PO 03/04/21 21:00 03/05/21 09:06 Dextrose 1,000 ml @ 100 mls/hr Q10H IV 03/04/21 22:00 03/05/21 09:45 Olanzapine (ZyPREXA IM) 2.5 mg PRN BID PRN IM AGITATION 03/05/21 09:45 03/05/21 09:44 ALLERGIES ALLERGIES: Coded Allergies: No Known Drug Allergies (Unverified , 03/04/21) ROS Gastrointestinal: Yes Diarrhea PHYSICAL EXAM General: Alert, Cooperative, No acute distress HEENT: Atraumatic, Mucous membr. moist/pink Lungs: Clear to auscultation, Normal air movement Heart: Regular rate (SR), Normal S1, Normal S2, No murmurs Abdomen: Soft, No tenderness Extremities: No cyanosis, No edema Skin: No breakdown, No significant lesion Neuro: Normal speech, Other (arm tremors) Psych/Mental Status: Other (flat affect) MUSCULOSKELETAL: Osteoarthritic changes both hands VITALS/I&O VITALS/I&O: Vital Signs Date Time Temp Pulse Resp B/P (MAP) Pulse Ox O2 Delivery O2 Flow Rate FiO2 03/05/21 09:05 70 140/65 03/05/21 07:34 Room Air 03/05/21 07:00 97.4 18 98 97.4 LABS Lab: Laboratory Tests Test 03/04/21 11:05 03/04/21 12:25 03/04/21 13:50 03/05/21 03:55 Glucose (Fingerstick) 91 mg/dL (70-99) White Blood Count 5.9 x10^3/uL (4.0-11.0) 5.2 x10^3/uL (4.0-11.0) Red Blood Count 3.91 x10^6/uL (4.30-5.70) L 3.47 x10^6/uL (4.30-5.70) L Hemoglobin 11.7 g/dL (13.0-17.5) L 10.3 g/dL (13.0-17.5) L Hematocrit 36.3 % (39.0-53.0) L 32.3 % (39.0-53.0) L Mean Corpuscular Volume 93 fL (79-100) 93 fL (79-100) Mean Corpuscular Hemoglobin 30 pg (25-35) 30 pg (25-35) Mean Corpuscular Hemoglobin Concent 32 g/dL (31-37) 32 g/dL (31-37) Red Cell Distribution Width 14.5 % (11.5-14.5) 14.4 % (11.5-14.5) Platelet Count 168 x10^3/uL (140-400) 138 x10^3/uL (140-400) L Neutrophils (%) (Auto) 62 % (31-73) 56 % (31-73) Lymphocytes (%) (Auto) 20 % (24-48) L 25 % (24-48) Monocytes (%) (Auto) 5 % (0-9) 5 % (0-9) Eosinophils (%) (Auto) 13 % (0-3) H 13 % (0-3) H Basophils (%) (Auto) 1 % (0-3) 1 % (0-3) Neutrophils # (Auto) 3.7 x10^3/uL (1.8-7.7) 2.9 x10^3/uL (1.8-7.7) Lymphocytes # (Auto) 1.2 x10^3/uL (1.0-4.8) 1.3 x10^3/uL (1.0-4.8) Monocytes # (Auto) 0.3 x10^3/uL (0.0-1.1) 0.3 x10^3/uL (0.0-1.1) Eosinophils # (Auto) 0.7 x10^3/uL (0.0-0.7) 0.7 x10^3/uL (0.0-0.7) Basophils # (Auto) 0.1 x10^3/uL (0.0-0.2) 0.1 x10^3/uL (0.0-0.2) Sodium Level 145 mmol/L (136-145) 145 mmol/L (136-145) Potassium Level 4.6 mmol/L (3.5-5.1) 3.8 mmol/L (3.5-5.1) Chloride Level 108 mmol/L (98-107) H 108 mmol/L (98-107) H Carbon Dioxide Level 28 mmol/L (21-32) 28 mmol/L (21-32) Anion Gap 9 (6-14) 9 (6-14) Blood Urea Nitrogen 46 mg/dL (8-26) H 38 mg/dL (8-26) H Creatinine 1.8 mg/dL (0.7-1.3) H 1.5 mg/dL (0.7-1.3) H Estimated GFR (Cockcroft-Gault) 36.4 44.9 BUN/Creatinine Ratio 26 (6-20) H 25 (6-20) H Glucose Level 95 mg/dL (70-99) 118 mg/dL (70-99) H Calcium Level 8.7 mg/dL (8.5-10.1) 8.2 mg/dL (8.5-10.1) L Total Bilirubin 0.4 mg/dL (0.2-1.0) 0.4 mg/dL (0.2-1.0) Aspartate Amino Transferase (AST) 20 U/L (15-37) 18 U/L (15-37) Alanine Aminotransferase (ALT) 29 U/L (16-63) 22 U/L (16-63) Alkaline Phosphatase 136 U/L (46-116) H 106 U/L (46-116) Troponin I High Sensitivity 19 ng/L (4-75) Total Protein 7.1 g/dL (6.4-8.2) 5.9 g/dL (6.4-8.2) L Albumin 3.5 g/dL (3.4-5.0) 2.7 g/dL (3.4-5.0) L Albumin/Globulin Ratio 1.0 (1.0-1.7) 0.8 (1.0-1.7) L Urine Collection Type Unknown Urine Color Yellow Urine Clarity Clear Urine pH 6.5 (<5.0-8.0) Urine Specific [place] 1.015 (1.000-1.030) Urine Protein 100 mg/dL (NEG-TRACE) Urine Glucose (UA) Negative mg/dL (NEG) Urine Ketones (Stick) Negative mg/dL (NEG) Urine Blood Negative (NEG) Urine Nitrite Negative (NEG) Urine Bilirubin Negative (NEG) Urine Urobilinogen Dipstick 0.2 mg/dL (0.2 mg/dL) Urine Leukocyte Esterase Negative (NEG) Urine RBC Occ /HPF (0-2) Urine WBC 0 /HPF (0-4) Urine Bacteria 0 /HPF (0-FEW) Laboratory Tests 03/04/21 12:25 03/05/21 03:55 Laboratory Tests 03/04/21 12:25 03/05/21 03:55 ECHOCARDIOGRAM ECHOCARDIOGRAM <Conclusion> The left ventricle is normal size. The left ventricular systolic function is normal and the ejection fraction is within normal range. Estimated ejection fraction 55-60%. There is borderline to mild concentric left ventricular hypertrophy. Doppler and Color Flow revealed no significant aortic regurgitation. There is no significant aortic valvular stenosis. Doppler and Color Flow revealed trace mitral valve regurgitation. Doppler and Color Flow revealed mild tricuspid regurgitation. Estimated PAP 30- 35 mmHg. DATE: 09/19/20 [id number] 0 ASSESSMENT/PLAN ASSESSMENT/PLAN 1. Syncope; suspect from orthostasis with potential dehydration 2. Parkinson's with likely autonomic dysfunction. 3. Carotid artery disease with known occlusion of the right ICA with carotid stent to LCIA 4. HTN; controlled 5. PAFIB: maintaining SR 6. HLP 7. Hx of sinus bradycardia; hence not on BB nor CCB 8. CKD3 9. Hx of parkinsons 10. Diabetes, II? 11. Hx of dementia and psychoses Recommendations Continue ASA for stroke prevention as he is poor candidate for OAC due to high risk for injury and fall Secondary prevention. No BB or CCB due to past hx of bradycardia Ensure adequate hydration Supportive care. IVF ongoing Check EKG and noted QTc TROY DIEGO MD 03/06/21 0646: CARDIAC CONSULT ASSESSMENT/PLAN ASSESSMENT/PLAN Late entry for 03/05/2021 Patient seen and examined. Agree with above nurse practitioner note. Suspect that the syncope was noncardiac in nature. Most likely this was related to his psychosis. Supportive care. Could consider outpatient placement of a implantable loop recorder should he have any recurrent issues. Thank you for this consultation. RAHUL SCHILLING APRN Mar 05, 2021 11:22 TROY DIEGO MD Mar 06, 2021 06:46
--- NOTE | 2021-03-05 11:34 | EKG ---
[facility] [address] [place] [address] Test Date: 2021-03-05 Test Time: 11:31:06 Pat Name: ALLISON SINGER Department: Room: 578 1 Gender: M Political Analyst: [place] : 1940 Requested By: RAHUL SCHILLING Order Number: [id number] Reading MD: Kenrick Peña MD Measurements Intervals [place] Rate: 73 P: 90 OK: 208 QRS: 26 QRSD: 80 T: 48 QT: 368 QTc: 409 Interpretive Statements SINUS RHYTHM Electronically Signed On 03-11-2021 11:51:10 PARACHUTE OFFICER by Kenrick Peña MD
--- NOTE | 2021-03-05 11:41 | PN ---
DATE: 03/05/2021 SUBJECTIVE: The patient is resting slightly propped up in bed, in no apparent respiratory distress. He is awake, alert. On questioning him this morning, he denied any complaint except that he has this essential tremors. Nursing staff stated that he continued to have delusions and mistook one of the CNAs as ex-. PHYSICAL EXAMINATION: GENERAL: When I examined him, he was pale, not jaundiced or cyanosed. No lymphadenopathy, no thyromegaly, no jugular venous distention. No limb edema. VITAL SIGNS: His heart rate was 72, blood pressure was 148/45, temperature was 97.8, respiratory rate was 18 and oxygen saturation of 97% on room air. HEAD, EYES, EARS, NOSE, AND THROAT: Normocephalic, atraumatic. NECK: Supple. HEART: Showed normal first and second heart sounds. No gallop, rub or murmur. CHEST: Clear to auscultation, no crepitation or rhonchi. ABDOMEN: Distended, soft, nontender. NEUROLOGIC: He was awake, alert, responding appropriately. All cranial nerves intact. He moves extremities without difficulty. He has very prominent tremors in his upper extremities. LABORATORY DATA: This morning showed a white cell count 5200, hemoglobin 10, hematocrit 32, MCV 93, and platelet count of 138,000. His chemistry showed a serum sodium 145, potassium 3.8, chloride 108, bicarbonate 28, anion gap of 9, BUN 38, creatinine 1.5. Estimated GFR was 44 mL per minute. His glucose 118, calcium was 8.2. Total bilirubin, AST, ALT, alkaline phosphatase were normal. His total protein 5.9, albumin 2.7. ASSESSMENT: 1. Poorly controlled hypertension, much better controlled now. 2. Recurrent syncopal episode. 3. Paranoid delusion. 4. The patient has multitude of other medical problems including hypertension, hyperlipidemia, atrial fibrillation, bilateral carotid stenosis with stent to the left carotid artery, congestive heart failure, chronic obstructive pulmonary disease. I did consult the Cardiology team. I will also order PT/OT to evaluate and treat. RAVINDRA/LUCRETIA DR: Clint TID: [id number]
--- NOTE | 2021-03-05 14:03 | NUR ---
SW following. Discussed with RN. 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 Cardiology following. RN notified of need for COVID swab for return to facility. SW will continue to follow.
--- NOTE | 2021-03-05 14:19 | HP ---
DATE OF SERVICE: 03/05/2021 ADMIT DATE: 03/04/2021 HISTORY OF PRESENT ILLNESS: The patient is an 80-year-old male patient, a resident at [facility] in [place] who was sent to the Emergency Room of [facility] as he apparently has multiple syncopal episodes. His blood pressure was also poorly controlled and therefore, he was sent to the Emergency Room in [facility] for further evaluation and treatment. He has dementia with paranoid delusion and he has been on multiple psychotropic medications, sometimes very agitated, impulsive, and he has been on haloperidol, Zyprexa and Seroquel. He was brought to the Emergency Room where he was extensively investigated with lab work as well as imaging studies. His lab work showed that his white cell count was normal at 5900 with normochromic normocytic anemia and normal platelet count. His chemistry showed that he has acute probably on chronic kidney injury with a BUN of 46, creatinine 1.8. His urinalysis was essentially unremarkable and a CT scan of the head showed no intracranial hemorrhage, no mass effect, no hydrocephalus, no evidence of acute territorial infarction, stable prominence of the lateral ventricles and hypodensity in the periventricular and deep white matter consistent with chronic microvascular ischemic changes, he does have postsurgical changes of the lenses, orbits and otherwise unremarkable image. Paranasal sinuses and mastoid air cells are clear. The patient was admitted on telemetry bed to consult the Cardiology team and also to restart all his medications as his blood pressure on arrival was extremely high. In fact, his blood pressure on arrival was 204/88. PAST MEDICAL HISTORY: Significant for atrial fibrillation, chronic obstructive pulmonary disease, bronchial asthma, congestive heart failure, type 2 diabetes mellitus, hyperlipidemia, hypertension, myocardial infarction, cerebrovascular accident, Parkinson's tremors versus essential tremors. PAST SURGICAL HISTORY: Significant for tonsillectomy and PCI with stent deployment. ALLERGIES: The patient has no known drug allergies. FAMILY HISTORY: Noncontributory. SOCIAL HISTORY: He is currently a resident at [facility]. He is a former smoker. He drinks alcohol rarely and does not use any drugs. MEDICATIONS: He is currently on the following medications: He is on atorvastatin calcium 20 mg at bedtime, losartan potassium 100 mg once a day. He is on aspirin 81 mg once a day, gabapentin 100 mg 3 times a day, haloperidol 5 mg intramuscular every 4 hours. He is on olanzapine 2.5 mg twice a day and olanzapine 5 mg at bedtime. He is on quetiapine fumarate 25 mg 3 times a day. REVIEW OF SYSTEMS: As per history of present illness. PHYSICAL EXAMINATION: GENERAL: On arrival to the Emergency Room, he was somewhat pale, not jaundiced or cyanosed, no lymphadenopathy, no thyromegaly, no jugular venous distention. No limb edema. VITAL SIGNS: His heart rate was 79, blood pressure was 223/86, temperature was 97.1, respiratory rate 22, and oxygen saturation was 99%. HEAD, EYES, EARS, NOSE, AND THROAT: Normocephalic, atraumatic. NECK: Supple. HEART: Normal first and second heart sounds. No gallop, rub or murmur. CHEST: Clear to auscultation, no crepitation or rhonchi. ABDOMEN: Distended, soft, nontender. NEUROLOGIC: He was awake, alert, very delusional as he was convinced that all of his providers are tapped by the [facility]. Apparently, these delusions have been ongoing for some time. LABORATORY DATA: On admission showed a white cell count 5900, hemoglobin 12, hematocrit 36, MCV 93, and platelet count of 168,000. His chemistry showed a serum sodium 145, potassium 4.6, chloride 108, bicarbonate 28, anion gap of 9, BUN 46, creatinine 1.8, estimated GFR was 36 mL per minute, his glucose was 95, calcium was 8.7. Total bilirubin, AST, ALT were normal. Alkaline phosphatase was 136, total protein was 7.1, albumin was 3.5. Troponin was 19 ng/mL. His urinalysis essentially unremarkable. ASSESSMENT AND PLAN: The patient was admitted with syncopal episode, poorly controlled hypertension. He has multitude of other medical problems including dementia, paranoid delusion. He is known to have hypertension, hyperlipidemia, coronary artery disease status post percutaneous coronary intervention with stent deployment. He has type 2 diabetes mellitus with diabetic peripheral neuropathy, chronic obstructive pulmonary disease, congestive heart failure, bronchial asthma as well as atrial fibrillation. 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 I reconciled all his medication. He was admitted to telemetry bed. I did consult the management department chair to assist with his management. He apparently was evaluated before by Dr. Olson and again he did not detect any evidence of Parkinson's disease and has essential tremors. He apparently has right carotid artery stenosis and left carotid stent stable. RAVINDRA/DAXA/SANNA DR: Clint TID: [id number]
--- NOTE | 2021-03-05 14:45 | NUR ---
spoke with Cristal (dpoa) gave her an update on his condition
[2021-03-05 15:00] VITALS: BP 154/57
--- NOTE | 2021-03-05 18:48 | NUR ---
covid test (pcr) obtained and taken to the lab
[2021-03-05 19:00] VITALS: BP 148/49
[2021-03-05] MEDS: OLANZapine 5 MG TABLET PO SCH (22:50)
[2021-03-05] MEDS: ATORVASTATIN CALCIUM 20 MG TABLET PO SCH (22:50)
[2021-03-05 23:00] VITALS: BP 166/62
[2021-03-06 02:54] VITALS: BP 112/51
[2021-03-06] MEDS: IV DEXTROSE 5% 1,000 ML IV SCH ×2 (05:26→14:00)
[2021-03-06 06:41] LABS: CALCIUM 8.2 mg/dL (8.5-10.1); CREATININE 1.5 mg/dL (0.7-1.3); GFR 44.9; POTASSIUM 3.8 mmol/L (3.5-5.1)
[2021-03-06 07:00] VITALS: BP 161/56
[2021-03-06] MEDS: GABAPENTIN 100 MG CAPSULE. PO SCH ×2 (09:18→13:50)
[2021-03-06] MEDS: LOSARTAN POTASSIUM 50 MG TABLET. PO SCH (09:19)
[2021-03-06] MEDS: QUEtiapine 25 MG TABLET. PO SCH ×2 (09:19→13:50)
--- NOTE | 2021-03-06 10:46 | SNU/HH DC ---
DISCHARGE ORDERS DISCHARGE INFORMATION: DISCHARGE DATE: Mar 06, 2021 FINAL DIAGNOSIS Problems Medical Problems: (1) Unresponsive episode Status: Acute CONDITION ON DISCHARGE: Stable CODE STATUS: Code Status: Full ASSISTED: SNF STAY <30 DAYS: Yes POST DISCHARGE ORDERS: ACTIVITY ORDERS: Activity as tolerated WEIGHT BEARING STATUS: Full weight bearing, As tolerated DIET AFTER DISCHARGE: ADA WOUND/INCISION CARE: No wound care needed CHECKS AFTER DISCHARGE: CHECKS AFTER DISCHARGE: Check blood press - daily, Check blood sugar, ac/hs TREATMENT/EQUIPMENT ORDERS: ADAPTIVE EQUIPMENT NEEDED: None Physical Therapy For: Evalulation/Treatment Occupational Therapy For: Evaluation/Treatment Speech Language Pathology For: Evaluation/Treatment DISCHARGE MEDICATIONS: Home Meds Active Scripts Quetiapine Fumarate (QUETIAPINE FUMARATE) 25 Mg Tablet, 25 MG PO TID for . for 30 Days, #90 TAB Prov:CASTLE,NIAL K III DO 09/21/20 Gabapentin (GABAPENTIN ) 100 Mg Capsule, 100 MG PO TID for neuropathy for 30 Days, #90 CAP Prov:CASTLE,NIAL K III DO 09/21/20 Reported Medications Olanzapine (ZYPREXA) 5 Mg Tablet, 1 TAB PO QHS for mood stabilizer, #30 TAB 1 Refill 03/04/21 Olanzapine (ZYPREXA) 2.5 Mg Tablet, 1 TAB PO PRN BID PRN for ANXIETY / AGITATIO N, #30 TAB 1 Refill 03/04/21 Losartan Potassium (LOSARTAN POTASSIUM) 100 Mg Tablet, 100 MG PO DAILY for HY PERTENSION, TAB 03/04/21 Haloperidol Lactate (Haloperidol Lactate) 5 Mg/1 Ml Syringe, 5 MG IM PRN Q4HRS PRN for ANXIETY / AGITATION, SYR 03/04/21 Aspirin (ASPIRIN) 81 Mg Tab.chew, 81 MG PO HS for other, TAB.CHEW 04/21/19 Atorvastatin Calcium (ATORVASTATIN CALCIUM) 20 Mg Tablet, 1 TAB PO DAILY for CHOLESTEROL, #30 TAB 5 Refills 07/09/15 Discontinued Reported Medications Losartan Potassium (LOSARTAN POTASSIUM ) 25 Mg Tablet, 25 MG PO DAILY for HYPERTENSION, TAB 05/23/20 PARISH SANDOVAL MD Mar 06, 2021 10:46
[2021-03-06 11:00] VITALS: BP 116/39
--- NOTE | 2021-03-06 12:26 | PDOC ---
APOLONIA BARBER SPORTS SPECIALIST 03/06/21 1226: CARDIO Progress Notes Date and Time Date of Service 03/06/21 Time of Evaluation 1220 Subjective Subjective: Other (confused, aggressive with staff. ) Vitals Vitals Vital Signs Date Time Temp Pulse Resp B/P (MAP) Pulse Ox O2 Delivery O2 Flow Rate FiO2 03/06/21 12:12 Room Air 03/06/21 09:19 69 161/56 03/06/21 07:00 97.3 16 98 97.3 Weight Weight [ ] Input and Output Intake and Output Intake and Output 03/06/21 07:00 Intake Total 200 ml Output Total 750 ml Balance -550 ml Intake Oral 200 ml Output Urine Total 750 ml # Voids 1 Laboratory Labs Laboratory Tests Test 03/06/21 05:15 Sodium Level 140 mmol/L (136-145) Potassium Level 3.8 mmol/L (3.5-5.1) Chloride Level 105 mmol/L (98-107) Carbon Dioxide Level 28 mmol/L (21-32) Anion Gap 7 (6-14) Blood Urea Nitrogen 31 mg/dL (8-26) Creatinine 1.5 mg/dL (0.7-1.3) Estimated GFR (Cockcroft-Gault) 44.9 Glucose Level 137 mg/dL (70-99) Calcium Level 8.2 mg/dL (8.5-10.1) Physical Exam HEENT: Neck Supple W Full Motion Chest: Symmetric LUNGS: Other (diminished bases) Heart: RRR (SR) Abdomen: Soft N/T Extremities: No Edema Neurology: alert, confused Assessment Assessment 1. Syncope; doubt cardiac etiology. suspected due to his psychosis. No acute events noted on tele. 2. Parkinson's, dementia 3. Carotid artery disease with known occlusion of the right ICA with carotid stent to LCIA 4. HTN; controlled overall 5. PAFIB: maintaining SR 6. HLP 7. Hx of sinus bradycardia; hence not on BB nor CCB. 8. CKD Recommendations Secondary prevention No BB or CCB due to past hx of bradycardia Patient is poor candidate for OAC due to high risk for injury and fall. ASA for stroke prevention; Supportive care Plan outpatient loop recorder implant if syncope recurrent Okay to discharge from a CV standpoint Justicifation of Admission Dx: Justifications for Admission: Justification of Admission Dx: Yes TROY DIEGO MD 03/07/21 0706: CARDIO Progress Notes Plan Plan Late entry for 03/06/2021 Patient seen and examined. Agree with above nurse practitioner note Continue treatment of primary psychosis. No further cardiovascular testing necessary at this time. APOLONIA BARBER APRN Mar 06, 2021 12:26 TROY DIEGO MD Mar 07, 2021 07:06
--- NOTE | 2021-03-06 12:37 | NUR ---
SW following. Discussed with RN, discharge orders faxed to [facility]. Stretcher transportation arranged by [facility] for 1400. RN notified.
--- NOTE | 2021-03-06 14:55 | NUR ---
PATIENT LEAVES THE UNIT PER STRETCHER, EMOTIONAL SUPPORT GIVEN, SALINE LOCK REMOVED FROM PATIENTS' LEFT FA PER THIS TECHNICAL SOLUTIONS CONSULTANT, EMOTIONAL SUPPORT GIVEN.
== END 2021-03-06 14:55 | disposition still patient (30) ==
LOC: ER 10:33 → INTOOBSV 14:20 → ED HOLD 14:20 → 5 SOUTH 18:31
PROVIDERS: ADMIT Internal Medicine; ATTEND Internal Medicine
DX: R40.4 Transient alteration of awareness (principal); Z20.822 Contact with and (suspected) exposure to COVID-19; R55 Syncope and collapse; F20.0 Paranoid schizophrenia; F03.90 Unspecified dementia, unspecified severity, without behavioral disturbance, psychotic disturbance, mood disturbance, and anxiety; E78.5 Hyperlipidemia, unspecified; I25.10 Atherosclerotic heart disease of native coronary artery without angina pectoris; D64.9 Anemia, unspecified; E78.00 Pure hypercholesterolemia, unspecified; E86.0 Dehydration; F02.80 Dementia in other diseases classified elsewhere, unspecified severity, without behavioral disturbance, psychotic disturbance, mood disturbance, and anxiety; G20 Parkinson's disease; G25.0 Essential tremor; I13.0 Hypertensive heart and chronic kidney disease with heart failure and stage 1 through stage 4 chronic kidney disease, or unspecified chronic kidney disease; I50.9 Heart failure, unspecified; N18.30 Chronic kidney disease, stage 3 unspecified; I25.2 Old myocardial infarction; I48.0 Paroxysmal atrial fibrillation; I65.23 Occlusion and stenosis of bilateral carotid arteries; J44.9 Chronic obstructive pulmonary disease, unspecified; R56.9 Unspecified convulsions; Z86.73 Personal history of transient ischemic attack (TIA), and cerebral infarction without residual deficits; Z87.891 Personal history of nicotine dependence; Z95.5 Presence of coronary angioplasty implant and graft; Z79.899 Other long term (current) drug therapy; Z98.890 Other specified postprocedural states; Z90.49 Acquired absence of other specified parts of digestive tract; Z79.82 Long term (current) use of aspirin
CPT/HCPCS: 36415; 70450; 80048; 80053; 81001; 82962; 83735; 84484; 85025; 93005; 96360; 96361; 96372; 99285; G0378; J1630; J3490; J7060; U0003; U0005; G0379